=== PATIENT | male | born 1940 | race Caucasian/White ===

== ENCOUNTER 2022-07-30 07:23 | Day surgery (SDC) | payer MEDICARE, SELFPAY ==
[2022-07-30 07:53] VITALS: BP 114/85; PULSE 92; RESP 18; TEMP 36.4; O2SAT 94
[2022-07-30] MEDS: Tropicam./Phenyleph. (1/2.5%) 5 ML BTL OS ×3 (07:59→08:12)
--- NOTE | 2022-07-30 08:21 | W.ANESPRE ---
General Info Date of Service Date Performed: 07/30/22 Height: 5 ft 6 in Weight: 86.5 kg Body Mass Index (BMI): 30.7 Surgical Procedure: Operation Date: 07/30/22 09:40 Proposed Procedure Side Surgeon p Cataract Extraction with IOL Implant Left Derek Weldon MD Meds Allergies and Home Medications Allergies Allergy/AdvReac Type Severity Reaction Status Date / Time amoxicillin Allergy Intermediate Other (See Unverified 07/28/22 12:06 Comment) Home Medication Medication Instructions Recorded atorvastatin 10 mg tablet 10 mg PO DAILY 07/27/22 diclofenac sodium 1 % topical gel 1 - 2 g topical BID PRN 07/27/22 diclofenac sodium 100 mg 100 mg PO DIRECTED 07/27/22 tablet,extended release 24 hr fluticasone propionate 50 1 spray intranasal DAILY PRN 07/27/22 mcg/actuation nasal spray,suspension loratadine 10 mg tablet 10 mg PO DAILY 07/27/22 losartan 50 mg tablet 50 mg PO DAILY 07/27/22 mecobalamin (vitamin B12) 1,000 1,000 mcg PO DAILY 07/27/22 mcg chewable tablet (B12 Active) multivitamin 1 tab PO DAILY 07/27/22 omega-3s 360 ng-grq-jec-fish oil 1 cap PO BID 07/27/22 1,200 mg-D3 1,000 unit capsule (Fish Oil-Vit D3) peg 400-propylene glycol (PF) 0.4 1 - 2 drp ophthalmic (eye) BID 07/27/22 %-0.3 % eye drops in a dropperette (Systane Ultra (PF)) polyethylene glycol 3350 17 gram 17 g PO DIRECTED 07/27/22 oral powder packet (Miralax) Current Visit Medications: Current Medications Generic Name Dose Route Start Last Admin Trade Name Freq PRN Reason Stop Dose Admin Acetaminophen 1,000 mg 07/30/22 06:00 Acetaminophen 500 Mg Tab PO Q4H PRN PRN Miscellaneous Medication 0 ml 07/30/22 06:00 07/30/22 08:12 Tropicam./Phenyleph. (1/2.5%) 5 Ml Btl OS 1 drp DIRECTED RITESH Administration Miscellaneous Medication 0 ml 07/30/22 06:00 Prednisolone 1%, Moxifloxacin 0.5%, Nepafenac 0.1% 5ml Btl OS DIRECTED RITESH Tetracaine HCl 0 ml 07/30/22 06:00 Tetracaine 0.5% 4 Ml Btl OS DIRECTED [facility] Medical History Medical History Benign essential hypertension Cataract Gout HLD (hyperlipidemia) Hypo-osmolality and hyponatremia Impaired glucose tolerance Medical History Comments:: had neck surgery 04/20/22- is able to lay flat well, pt. states to be mindful with his neck Surgical History Surgical History (Updated 07/30/22 @ 07:49 by Torres Milton) [place] [place] Tobacco Smoking/Tobacco Use Status: Never Alcohol Alcohol Intake: current Alcohol intake frequency: 0-2 drinks per day Substance Use Substance use: Never Substance use type: does not use Vital Signs and Lab Results Vital Signs Most Recent Vital Signs in EMR: Most Recent Vital Signs Temp Pulse Resp BP Pulse Ox 36.4 C L 92 H 18 114/85 94 07/30/22 07:53 07/30/22 07:53 07/30/22 07:53 07/30/22 07:53 07/30/22 07:53 Lab Results Blood Type / Crossmatch: No Data to Display Complete Blood Count: No Data to Display Complete Metabolic Panel: No Data to Display Liver Function Panel: No Data to Display Coagulation Panel: No Data to Display Cardiac Panel: No Data to Display Arterial Blood Gas: No Data to Display Venous Blood Gas: No Data to Display Pancreas Panel: No Data to Display Thyroid Panel: No Data to Display Infectious Disease: No Data to Display Blood Cultures: No Data to Display Toxicology Panel: No Data to Display Anesthesia Assessment and Plan Anesthesia History Personal History: No History of Anesthesia Complications Family History: No Family History of Anesthesia Complications Exercise Tolerance Exercise Tolerance: Metabolic Equivalents<4 Pertinent Negatives Pertinent Negatives: No Symptoms of GERD Cardiac & Pulmonary Exam Cardiac Exam: Normal S1/S2 Heart Sounds Pulmonary Exam: Clear Bilateral Breath Sounds Implantable Cardiac Device Does patient have a Pacemaker or an ICD?: No Airway Exam Known Difficult Airway: No Mallampati Class: 2 Mouth Opening: Normal (> 3cm) Thyromental Distance: Pediatric Patient Neck Range of Motion: Limited ROM (had neck surgery 2021) Neck Circumference: Normal Teeth Condition: Normal Dentition ASA Classification ASA Score: ASA 3 Emergency Case?: No NPO Status NPO Status: NPO Clears >2 hours, Solids >8 hours Anesthesia Plan Resuscitation Status: Full Code Anesthesia Technique: MAC Anesthesia Airway Planned: Natural Airway Monitors Used: Standard Monitors
[2022-07-30 08:25] VITALS: BMI 30.7
[2022-07-30] MEDS: Tetracaine 0.5% 4 ML BTL OS (08:59)
[2022-07-30] MEDS: Balanced Salt Soln.-PLUS 500 ML BAG (09:00)
[2022-07-30] MEDS: Lidocaine 1% Pres-Free 5 ML VIAL (09:00)
[2022-07-30] MEDS: Lidocaine 2% Jelly 6 ML SYR (09:01)
[2022-07-30] MEDS: Duovisc Viscoelastic System EACH 1 EACH (09:01)
[2022-07-30] MEDS: Povidone-Iodine Ophth 30 ML BTL (09:02)
[2022-07-30 09:19] VITALS: BP 104/78; PULSE 67; RESP 18; TEMP 36.3; O2SAT 97
--- NOTE | 2022-07-30 09:20 | PDOC.DSDIS_ITS ---
Date of service: 07/30/22 Time of Service: 09:20 Discharge Plan Disposition Patient Disposition: Home Discharge Details Attending Provider: Derek Weldon Primary Care Provider: Carlos Pineda [place] Meds and New Rx's Prescriptions: No Action multivitamin Tablet 1 tab PO DAILY losartan 50 mg Tablet 50 mg PO DAILY polyethylene glycol 3350 [Miralax] 17 gram Powder In Packet 17 g PO DIRECTED atorvastatin 10 mg Tablet 10 mg PO DAILY diclofenac sodium 100 mg Tablet Extended Release 24 Hr 100 mg PO DIRECTED fluticasone propionate 50 mcg/actuation [place],Suspension 1 spray INTRANASAL DAILY PRN loratadine 10 mg Tablet 10 mg PO DAILY Systane Ultra (PF) 0.4-0.3 % Dropperette 1 - 2 drp ophthalmic (eye) BID diclofenac sodium 1 % Gel 1 - 2 g TOPICAL BID PRN fuyjt-2b-hpt-epa-fish oil-D3 [Fish Oil-Vit D3] 360 mg-1,200 mg -1,000 unit Capsule 1 cap PO BID mecobalamin (vitamin B12) [B12 Active] 1,000 mcg Tablet,Chewable 1,000 mcg PO DAILY Discharge Instructions Stand Alone Forms: Post-op Topical Cataract, Mariano Mcmahon (DSU) Discharge Orders Discharge Orders: Discharge Order (Routine); Ordered 07/30/22 Ordered By: Derek Weldon DS: Diagnosis Discharge Diagnosis (1) Nuclear sclerotic cataract of left eye: Status: Resolved (2) Cortical cataract of left eye: Status: Resolved (3) Posterior subcapsular age-related cataract of left eye: Status: Resolved
--- NOTE | 2022-07-30 09:21 | ROE_ITS ---
Date of service: 07/30/22 Time of Service: 09:21 Operative Note Operative Note DATE OF PROCEDURE: 07/30/22 PRE-OP DIAGNOSIS: Nuclear/cortical/posterior subcapsular cataract, left eye POST-OP DIAGNOSIS: same PROCEDURE: Cataract extraction using phacoemulsification with intraocular lens implant, left eye SURGEON: Derek Weldon ANESTHESIA TYPE: Local By Surgeon and MAC Refer to Anesthesia Record PATHOLOGY: none sent COMPLICATIONS: None Patient was transported to: same day Patient's condition: stable Implants: Luke Clareon [id number] Indications: Progressive decreased vision due to cataract, left eye Procedure Description: CATARACT SURGERY OPERATIVE REPORT PREOPERATIVE DIAGNOSIS: Nuclear/cortical/posterior subcapsular cataract, left eye POSTOPERATIVE DIAGNOSIS: Same OPERATION: Cataract extraction using phacoemulsification with posterior chamber intraocular lens implant, left eye. IOL: IOL Production Sanitizer/Model: Luke Clareon [id number] IOL Power: + 19.5 diopters IOL Serial Number: [id number] Optic Diameter: 6.0mm Haptic/Overall Diameter: 13.0mm PHACO INFO: Luke [employer] MEDIA GROUP[employer]ion Vision System with OZil and Active Fluidics Cumulative Dispersed Energy (CDE): 11.63 seconds SURGEON: Derek Weldon MD, MIAH ANESTHESIA: Monitored Anesthesia Care (MAC), with local sub-tenon's anesthetic infiltration COMPLICATIONS: None SPECIMENS: None INDICATIONS FOR PROCEDURE: Patient is an 82-year-old male with history of diminished visual acuity in his left eye secondary to the development of nuclear/cortical/posterior subcapsular cataract. He is significantly symptomatic that he desires cataract surgery and attempt to improve and maximize his vision. The option of cataract surgery was offered to the patient and he wished to proceed. PROCEDURE: The correct surgical eye was identified and marked as the left eye and the pupil was dilated in the preoperative area using mydriatics and cycloplegics. The dilated pupil size was 7.0 mm. The patient elected to proceed without oral sedation. The patient was brought to the operating room where cardiopulmonary monitoring was instituted and surgical time-out was performed, confirming the correct operative eye and IOL power. Topical anesthesia was administered and ophthalmic povidone-iodine 5% was instilled into the conjunctival fornices. Lidocaine gel was applied to the cornea and the juan-ocular area was prepped with Betadine 10% solution and draped in the usual sterile fashion for intraocular surgery, including an aperture drape. A Tegaderm transparent film dressing was cut in half and used to cover the lashes and lid margins. Care was taken to sequester the lashes and lid margins under the Tegaderm dressing. A lid speculum was placed between the lids of the operative eye and the Luke [employer] operating microscope was maneuvered into position. Latisha scissors were then used to make a conjunctival buttonhole approximately 6mm posterior to the limbus in the inferonasal quadrant. Blunt dissection was carried out to expose bare sclera, and a blunt-tipped sub-tenon?s anesthesia cannula was introduced and passed posteriorly along the globe where non- preserved plain lidocaine was injected into posterior sub-Tenon?s space. A lg eport knife was used to make a paracentesis port superior/superiortemporally. Intraocular phenylephrine/lidocaine was injected into the anterior chamber. The anterior chamber was then filled with viscoelastic. A keratome knife was used construct a two-plane near-clear corneal tunnel extending 2.0mm into clear cornea in the temporal position. . A flap was raised on the anterior capsule and capsulorhexis forceps were used to complete a continuous curvilinear capsulorhexis of 5.0 mm. Balanced salt solution was then used to perform cortical cleaving hydrodissection and nuclear hydrodelineation until the lens could be freely rotated within the capsular bag. The lens nucleus was then disassembled and removed within the capsular bag and iris plane using phacoemulsification. Residual cortical material was removed using the 45-degree angled silicone I/A tip with 0.3mm port. The posterior capsule was carefully polished to remove as much residual lens epithelial cells as safely possible. The capsular bag was then inflated and the anterior chamber deepened with viscoelastic. The lens implant described above was inserted into the capsular bag using the Luke Autonome Injector. A Kuglen hook was used to dial the IOL into position. Residual viscoelastic was then removed first from posterior to the IOL, then from the anterior chamber using the I/A handpiece. The lens implant was noted to center nicely within the capsular bag. The incisions were stromally hydrated, and the anterior chamber was reformed using BSS. Then 0.5cc of moxifloxacin 1.0mg/ml were injected into the capsular bag and anterior chamber. The incisions were checked with a Weck spear and found to be secure. Several drops of ophthalmic povidone-iodine 5% were then applied to the eye followed by two drops of Imprimis combination prednisolone/moxifloxacin/nepafenac solution. The drapes were removed and a clear plastic protective eye shield was placed over the eye. The patient was then returned to Same Day Surgery in stable condition.
--- NOTE | 2022-07-30 09:59 | W.ANESPOSTOP ---
Postoperative Evaluation Date, Time and Location Date Performed: 07/30/22 Time Performed: 09:15 Patient Location: Day Surgery Unit Vital Signs Most Recent Imported Vital Signs: Most Recent Vital Signs Temp Pulse Resp BP Pulse Ox 36.3 C L 67 18 104/78 97 07/30/22 09:19 07/30/22 09:19 07/30/22 09:19 07/30/22 09:19 07/30/22 09:19 Pain Score Most Recent Pain Score: Most Recent Pain Score Pain Level 0 07/30/22 09:19 Assessment Mental Status: Awake (Alert & Oriented to Patient Baseline) Airway and Respiratory Function: Patent airway with normal (patient baseline) respiratory exam Cardiovascular Function: Hemodynamically Stable Hydration Status: Adequately Hydrated Nausea & Vomiting: No Nausea or Vomiting Pain: Pt. Denies Any Pain Peripheral Nerve Block: Patient did not receive a nerve block
== END 2022-07-30 09:50 | disposition home or self-care (01) ==
LOC: SUR 07:25
PROVIDERS: PCP Internal Medicine; Visit Provider Ophthalmology
PROC: (CPT 66984; principal; 2022-07-30 09:30)
DX: H25.042 Posterior subcapsular polar age-related cataract, left eye (principal)
CPT/HCPCS: 66984; V2632

== ENCOUNTER 2022-08-06 08:50 | Day surgery (SDC) | payer MEDICARE, SELFPAY ==
--- NOTE | 2022-08-06 08:39 | W.ANESPRE ---
General Info Date of Service Date Performed: 08/06/22 Height: 5 ft 5 in Weight: 87.4 kg Body Mass Index (BMI): 32.1 Surgical Procedure: Operation Date: 08/06/22 10:40 Proposed Procedure Side Surgeon p Cataract Extraction with IOL Implant Right Derek Weldon MD Meds Allergies and Home Medications Allergies Allergy/AdvReac Type Severity Reaction Status Date / Time amoxicillin Allergy Intermediate Other (See Verified 08/06/22 09:11 Comment) Home Medication Medication Instructions Recorded atorvastatin 10 mg tablet 10 mg PO DAILY 07/27/22 diclofenac sodium 1 % topical gel 1 - 2 g topical BID PRN 07/27/22 diclofenac sodium 100 mg 100 mg PO DIRECTED 07/27/22 tablet,extended release 24 hr fluticasone propionate 50 1 spray intranasal DAILY PRN 07/27/22 mcg/actuation nasal spray,suspension loratadine 10 mg tablet 10 mg PO DAILY 07/27/22 losartan 50 mg tablet 50 mg PO DAILY 07/27/22 mecobalamin (vitamin B12) 1,000 1,000 mcg PO DAILY 07/27/22 mcg chewable tablet (B12 Active) multivitamin 1 tab PO DAILY 07/27/22 omega-3s 360 gs-ytb-inq-fish oil 1 cap PO BID 07/27/22 1,200 mg-D3 1,000 unit capsule (Fish Oil-Vit D3) peg 400-propylene glycol (PF) 0.4 1 - 2 drp ophthalmic (eye) BID 07/27/22 %-0.3 % eye drops in a dropperette (Systane Ultra (PF)) polyethylene glycol 3350 17 gram 17 g PO DIRECTED 07/27/22 oral powder packet (Miralax) Current Visit Medications: Current Medications Generic Name Dose Route Start Last Admin Trade Name Freq PRN Reason Stop Dose Admin Acetaminophen 1,000 mg 08/06/22 06:00 Acetaminophen 500 Mg Tab PO Q4H PRN PRN Miscellaneous Medication 0 ml 08/06/22 06:00 Tropicam./Phenyleph. (1/2.5%) 5 Ml Btl OD DIRECTED [facility] Miscellaneous Medication 0 ml 08/06/22 06:00 Prednisolone 1%, Moxifloxacin 0.5%, Nepafenac 0.1% 5ml Btl OD DIRECTED [facility] Tetracaine HCl 0 ml 08/06/22 06:00 Tetracaine 0.5% 4 Ml Btl OD DIRECTED [facility] Active Problems Active Problems: Problem Status Onset Code Nuclear sclerotic cataract of left eye H25.12 Cortical cataract of left eye H26.9 Posterior subcapsular age-related cataract of left eye H25.042 Medical History Medical History Benign essential hypertension Cataract Gout HLD (hyperlipidemia) Hypo-osmolality and hyponatremia Impaired glucose tolerance Medical History Comments:: had neck surgery 04/20/22- is able to lay flat well, pt. states to be mindful with his neck Surgical History Surgical History History of cataract surgery History of neck surgery pin and screws in [place] [place]illect[place] Tobacco Smoking/Tobacco Use Status: Never Alcohol Alcohol Intake: current Alcohol intake frequency: 0-2 drinks per day Substance Use Substance use: Never Substance use type: does not use Vital Signs and Lab Results Lab Results Blood Type / Crossmatch: No Data to Display Complete Blood Count: No Data to Display Complete Metabolic Panel: No Data to Display Liver Function Panel: No Data to Display Coagulation Panel: No Data to Display Cardiac Panel: No Data to Display Arterial Blood Gas: No Data to Display Venous Blood Gas: No Data to Display Pancreas Panel: No Data to Display Thyroid Panel: No Data to Display Infectious Disease: No Data to Display Blood Cultures: No Data to Display Toxicology Panel: No Data to Display Anesthesia Assessment and Plan Anesthesia History Personal History: No History of Anesthesia Complications Family History: No Family History of Anesthesia Complications Exercise Tolerance Exercise Tolerance: Metabolic Equivalents<4 Pertinent Negatives Pertinent Negatives: No Symptoms of GERD, No Major Pulmonary Symptoms or Complaints and No History of CVA/TIA Cardiac & Pulmonary Exam Cardiac Exam: Normal S1/S2 Heart Sounds Pulmonary Exam: Clear Bilateral Breath Sounds Implantable Cardiac Device Does patient have a Pacemaker or an ICD?: No Airway Exam Known Difficult Airway: No Mallampati Class: 2 Mouth Opening: Normal (> 3cm) Thyromental Distance: Pediatric Patient Neck Range of Motion: Limited ROM (had neck surgery 2021) Neck Circumference: Normal Teeth Condition: Normal Dentition ASA Classification ASA Score: ASA 3 Emergency Case?: No NPO Status NPO Status: NPO Clears >2 hours, Solids >8 hours Anesthesia Plan Resuscitation Status: Full Code Anesthesia Technique: MAC Anesthesia Airway Planned: Natural Airway Monitors Used: Standard Monitors
[2022-08-06 09:14] VITALS: BP 137/80; PULSE 68; RESP 16; TEMP 36.3; O2SAT 97
[2022-08-06] MEDS: Tropicam./Phenyleph. (1/2.5%) 5 ML BTL OD ×3 (09:24→09:34)
[2022-08-06 10:04] VITALS: BMI 32.1
[2022-08-06] MEDS: Balanced Salt Soln.-PLUS 500 ML BAG (11:00)
[2022-08-06] MEDS: Tetracaine 0.5% 4 ML BTL OD (11:00)
[2022-08-06] MEDS: Lidocaine 2% Jelly 6 ML SYR (11:01)
[2022-08-06] MEDS: Duovisc Viscoelastic System EACH 1 EACH (11:01)
[2022-08-06] MEDS: Povidone-Iodine Ophth 30 ML BTL (11:02)
[2022-08-06 11:19] VITALS: BP 122/88; PULSE 61; RESP 16; TEMP 36.2; O2SAT 98
--- NOTE | 2022-08-06 11:20 | PDOC.DSDIS_ITS ---
Date of service: 08/06/22 Time of Service: 11:20 Discharge Plan Disposition Patient Disposition: Home Discharge Details Attending Provider: Derek Weldon Primary Care Provider: Carlos Pineda [place] Meds and New Rx's Prescriptions: No Action multivitamin Tablet 1 tab PO DAILY losartan 50 mg Tablet 50 mg PO DAILY polyethylene glycol 3350 [Miralax] 17 gram Powder In Packet 17 g PO DIRECTED atorvastatin 10 mg Tablet 10 mg PO DAILY diclofenac sodium 100 mg Tablet Extended Release 24 Hr 100 mg PO DIRECTED fluticasone propionate 50 mcg/actuation [place],Suspension 1 spray INTRANASAL DAILY PRN loratadine 10 mg Tablet 10 mg PO DAILY Systane Ultra (PF) 0.4-0.3 % Dropperette 1 - 2 drp ophthalmic (eye) BID diclofenac sodium 1 % Gel 1 - 2 g TOPICAL BID PRN zwvpe-9v-csx-epa-fish oil-D3 [Fish Oil-Vit D3] 360 mg-1,200 mg -1,000 unit Capsule 1 cap PO BID mecobalamin (vitamin B12) [B12 Active] 1,000 mcg Tablet,Chewable 1,000 mcg PO DAILY Discharge Instructions Stand Alone Forms: Post-op Topical Cataract, Mariano Mcmahon (DSU) Discharge Orders Discharge Orders: Discharge Order (Routine); Ordered 08/06/22 Ordered By: Derek Weldon DS: Diagnosis Discharge Diagnosis (1) Posterior subcapsular age-related cataract, right eye: Status: Resolved (2) Cortical cataract of right eye: Status: Resolved (3) Nuclear sclerotic cataract of right eye: Status: Resolved
--- NOTE | 2022-08-06 11:21 | W.PM.OP ---
Date of service: 08/06/22 Time of Service: 11:21 Operative Note Operative Note DATE OF PROCEDURE: 08/06/22 PRE-OP DIAGNOSIS: Nuclear/cortical/posterior subcapsular cataract, right eye POST-OP DIAGNOSIS: same PROCEDURE: Cataract extraction using phacoemulsification with intraocular lens implant, right eye SURGEON: Derek Weldon ANESTHESIA TYPE: Local By Surgeon and MAC Refer to Anesthesia Record ESTIMATED BLOOD LOSS: 0 PATHOLOGY: none sent COMPLICATIONS: None Patient was transported to: same day Patient's condition: stable Implants: Luke Clareon [id number] Indications: Progressive decreased vision due to cataract, right eye Procedure Description: CATARACT SURGERY OPERATIVE REPORT PREOPERATIVE DIAGNOSIS: Nuclear/cortical/posterior subcapsular cataract, right eye POSTOPERATIVE DIAGNOSIS: Same OPERATION: Cataract extraction using phacoemulsification with posterior chamber intraocular lens implant, right eye. IOL: IOL Lawn Maintenance Worker/Model: Luke Clareon [id number] IOL Power: + 20.0 diopters IOL Serial Number: [id number] Optic Diameter: 6.0mm Haptic/Overall Diameter: 13.0mm PHACO INFO: Luke [employer] Vision System with OZil and Active Fluidics Cumulative Dispersed Energy (CDE): 5.56 seconds SURGEON: Derek Weldon MD, MIAH ANESTHESIA: Monitored Anesthesia Care (MAC), with local sub-tenon's anesthetic infiltration COMPLICATIONS: None SPECIMENS: None INDICATIONS FOR PROCEDURE: The patient is an 82-year-old gentleman with history of diminished visual acuity in his right eye secondary to the development of nuclear/cortical/posterior subcapsular cataract. He has previously undergone cataract surgery in his left eye and is doing well postoperatively. He now presents for cataract surgery in the right eye. PROCEDURE: The correct surgical eye was identified and marked as the right eye and the pupil was dilated in the preoperative area using mydriatics and cycloplegics. The dilated pupil size was 7.0 mm. The patient elected to proceed without oral sedation. The patient was brought to the operating room where cardiopulmonary monitoring was instituted and surgical time-out was performed, confirming the correct operative eye and IOL power. Topical anesthesia was administered and ophthalmic povidone-iodine 5% was instilled into the conjunctival fornices. Lidocaine gel was applied to the cornea and the juan-ocular area was prepped with Betadine 10% solution and draped in the usual sterile fashion for intraocular surgery, including an aperture drape. A Tegaderm transparent film dressing was cut in half and used to cover the lashes and lid margins. Care was taken to sequester the lashes and lid margins under the Tegaderm dressing. A lid speculum was placed between the lids of the operative eye and the Jeff-Farshad operating microscope was maneuvered into position. Latisha scissors were then used to make a conjunctival buttonhole approximately 6mm posterior to the limbus in the inferonasal quadrant. Blunt dissection was carried out to expose bare sclera, and a blunt-tipped sub-tenon?s anesthesia cannula was introduced and passed posteriorly along the globe where non-preserved plain lidocaine was injected into posterior sub-Tenon?s space. A sideport knife was used to make a paracentesis port inferiortemporally. Intraocular phenylephrine/lidocaine was injected into the anterior chamber. The anterior chamber was then filled with viscoelastic. A keratome knife was used to construct a two--plane near-clear corneal tunnel extending 2.0mm into clear cornea in the superiortemporal position.. A flap was raised on the anterior capsule and capsulorhexis forceps were used to complete a continuous curvilinear capsulorhexis of 5.5 mm. Balanced salt solution was then used to perform cortical cleaving hydrodissection and nuclear hydrodelineation until the lens could be freely rotated within the capsular bag. The lens nucleus was then disassembled and removed within the capsular bag and iris plane using phacoemulsification. Residual cortical material was removed using the I/A handpiece. The posterior capsule was carefully polished to remove as much residual lens epithelial cells as safely possible. The capsular bag was then inflated and the anterior chamber deepened with viscoelastic. The lens implant described above was inserted into the capsular bag using the Luke Autonome Injector. A Kuglen hook was used to dial the IOL into position. Residual viscoelastic was then removed first from posterior to the IOL, then from the anterior chamber using the I/A handpiece. The lens implant was noted to center nicely within the capsular bag. The incisions were stromally hydrated, and the anterior chamber was reformed using BSS. Then 0.5cc of moxifloxacin 1.0mg/ml were injected into the capsular bag and anterior chamber. The incisions were checked with a Weck spear and found to be secure. Several drops of ophthalmic povidone-iodine 5% were then applied to the eye followed by two drops of Imprimis combination prednisolone/moxifloxacin/nepafenac solution. The drapes were removed and a clear plastic protective eye shield was placed over the eye. The patient was then returned to Same Day Surgery in stable condition.
--- NOTE | 2022-08-06 11:37 | W.ANESPOSTOP ---
Postoperative Evaluation Date, Time and Location Date Performed: 08/06/22 Time Performed: 11:19 Patient Location: Day Surgery Unit Vital Signs Most Recent Imported Vital Signs: Most Recent Vital Signs Temp Pulse Resp BP Pulse Ox 36.2 C L 61 16 122/88 98 08/06/22 11:19 08/06/22 11:19 08/06/22 11:19 08/06/22 11:19 08/06/22 11:19 Pain Score Most Recent Pain Score: Most Recent Pain Score Pain Level 0 08/06/22 11:19 Assessment Mental Status: Awake (Alert & Oriented to Patient Baseline) Airway and Respiratory Function: Patent airway with normal (patient baseline) respiratory exam Cardiovascular Function: Hemodynamically Stable Hydration Status: Adequately Hydrated Nausea & Vomiting: No Nausea or Vomiting Pain: Pt. Denies Any Pain Peripheral Nerve Block: Other (Local by Dr. Weldon)
== END 2022-08-06 11:43 | disposition home or self-care (01) ==
LOC: SUR 08:50
PROVIDERS: PCP Internal Medicine; Visit Provider Ophthalmology
PROC: (CPT 66984; principal; 2022-08-06 10:30)
DX: H25.041 Posterior subcapsular polar age-related cataract, right eye (principal)
CPT/HCPCS: 66984; V2632